=== PATIENT | male | born 1995 | race Caucasian/White ===

== ENCOUNTER 2020-12-26 21:46 | Emergency (ER) | payer MEDICAID, OTHER ==
[~2020-12-26] VITALS: Ht 198.1 cm; Wt 181.4 kg
[2020-12-26 22:58] VITALS: BP 128/86
== END 2020-12-27 01:13 | disposition left against medical advice (07) ==
LOC: ER 21:50
DX: U07.1 COVID-19 (principal); R42 Dizziness and giddiness; R10.9 Unspecified abdominal pain; R51.9 Headache, unspecified; Z53.21 Procedure and treatment not carried out due to patient leaving prior to being seen by health care provider